=== PATIENT | female | born 1995 | race Two or more races ===

== ENCOUNTER 2023-08-01 13:27 | Emergency (ER) | payer BC, OTHER ==
[~2023-08-01] VITALS: Ht 167.6 cm; Wt 69.5 kg
[2023-08-01 14:23] LABS: Basophils # (auto) 0 10 ^3/uL (0-0.2); Basophils % (auto) 0.7 % (0.0-2.0); Eosinophils # (auto) 0 10 ^3/uL (0-0.8); Eosinophils % (auto) 0.1 % (0.0-7.0); Hematocrit 42.5 % (36.0-46.0); Hemoglobin 14.5 g/dL (12.2-16.2); Lymphocytes # (auto) 1.3 10 ^3/uL (0.4-5.4); Lymphocytes % (auto) 19.6 % (10.0-50.0); Mean Corpuscular Hemoglobin 33.6 pg (28.0-32.0); Mean Corpuscular Hgb Conc. 34.1 g/dL (32.0-36.0); Mean Corpuscular Volume 98.4 fL (80.0-100.0); Monocytes # (auto) 0.4 10 ^3/uL (0-1.3); Monocytes % (auto) 6.1 % (0.0-12.0); Neutrophils # (auto) 4.7 10 ^3/uL (1.6-8.6); Neutrophils % (auto) 73.5 % (37.0-80.0); Red Blood Cells 4.31 10^6/uL (4.0-5.20); Red Cell Distribution Width 14.1 % (11.8-14.3); White Blood Cell 6.4 10^3/uL (4.4-10.8)
[2023-08-01 14:39] LABS: Urine Bacteria FEW /hpf (None Seen); Urine Blood 1+ /uL (Negative); Urine Clarity HAZY (Clear); Urine Color Colorless (Yellow); Urine Mucus FEW (None Seen); Urine Protein, UAD Negative (Negative); Urine Specific Gravity 1.014 (1.001-1.035); Urine Urobilinogen Normal (Negative); Urine WBC 18 /hpf (0 - 5); Urine pH 7.5 (5.0-8.0)
[2023-08-01 14:43] LABS: Alanine Aminotransferase 15 U/L (7-40); Albumin 4.7 g/dL (3.2-4.8); Alkaline Phosphatase 55 U/L (46-116); Anion Gap 7 (5-15); Aspartate Aminotransferase 11 U/L (13-40); Bilirubin, Total 0.4 mg/dL (0.2-1.0); Blood Urea Nitrogen 5 mg/dL (9-23); Calcium 9.4 mg/dL (8.7-10.4); Carbon Dioxide 26 mmol/L (20-30); Chloride 108 mmol/L (98-107); Glucose 109 mg/dL (74-106); Potassium 3.6 mmol/L (3.5-5.1); Sodium 141 mmol/L (136-145); Total Protein 7.3 g/dL (5.7-8.2)
[2023-08-01 14:58] LABS: Amphetamine Screen, Urine Neg (NEGATIVE); Barbiturate Scree,Urine Neg (NEGATIVE); Benzodiazephine Screen, Urine Neg (NEGATIVE); Cannabinoid Screen, Urine Neg (NEGATIVE); Cocaine Screen, Urine Neg (NEGATIVE); Opiate Scree,Urine Neg (NEGATIVE); Phencyclidine Screen, Urine Neg (NEGATIVE)
[2023-08-01 15:00] LABS: INR 1.09 (0.9-1.15); Partial Thromboplastin Time 28.9 SEC (24.5-34.5); Prothrombin Time 11.4 sec (9.3-11.8)
[2023-08-01] MEDS ORDERED: METO-281 PO (18:30)
[2023-08-01] MEDS ORDERED: CEPH500C PO (18:30)
[2023-08-01] MEDS: ONDANSETRON ODT 4 MG TAB PO ONE (21:30)
[2023-08-01] MEDS: HYDROcodone-ACET 5/325MG TAB PO ONE (21:30)
[2023-08-01] MEDS: cefTRIAXone 1GM/50ML D5W 50 ML IV ONE (21:37)
[2023-08-01] MEDS: SODIUM CHLORIDE 0.9% 1,000 ML IV ONE (21:37)
[2023-08-01] MEDS: METOCLOPRAMIDE HCL 5MG/ml INJ 2ml VIAL IV ONE (21:37)
[2023-08-01 22:10] VITALS: BP 128/84; PULSE 80; RESP 16; TEMP 97.9; O2SAT 100
== END 2023-08-01 22:16 | disposition home or self-care (01) ==
LOC: ER 13:27
DX: G43.909 Migraine, unspecified, not intractable, without status migrainosus (principal); R10.2 Pelvic and perineal pain; N39.0 Urinary tract infection, site not specified; M19.90 Unspecified osteoarthritis, unspecified site; Z98.890 Other specified postprocedural states; Z79.899 Other long term (current) drug therapy
CPT/HCPCS: 36415; 70450; 80053; 80307; 81001; 84484; 84702; 85025; 85379; 85610; 85730; 96365; 96375; 99285; J0696; J2765; Q0162; 93005